=== PATIENT | female | born 1960 | race African-American/Black ===

== ENCOUNTER 2017-04-28 08:18 | Observation (INO) ==
[2017-04-28] MEDS ORDERED: MORPHINE 2 MG/1 ML SYRINGE IV PRN (08:39)
[2017-04-28] MEDS ORDERED: ONDANSETRON 4 MG/2 ML VIAL IV PRN (08:39)
[2017-04-28] MEDS ORDERED: ENOXAPARIN 100 MG/ML SYRINGE SUBCUT STA (08:39)
[2017-04-28] MEDS ORDERED: ASPIRIN 325 MG TABLET PO STA (08:39)
[2017-04-28] MEDS ORDERED: ENOXAPARIN 80 MG/0.8 ML SYRINGE SUBCUT ONE (08:55)
[2017-04-28 08:59] LABS: Basophils % 0.5 % (0.0-0.8); Eosinophils % 0.7 % (0.00-10.9); Hematocrit 39.9 VOL% (35.7-47.0); Hemoglobin 13.9 GM/DL (12.0-16.0); Immature Granulocytes % 0.3 %; Immature Granulocytes Absolute 0.02 #; Lymphocytes # 2.7 10*3/uL (1.4-4.0); Lymphocytes % 44.8 % (21.3-54.2); Mean Corpuscular HGB Conc 34.8 GM/DL (32-36); Mean Corpuscular Hemoglobin 31 PG (27-34); Mean Corpuscular Volume 89.3 FL (87-102); Mean Platelet Volume 9.3 FL (9.6-12.0); Monocytes # 0.3 10*3/uL (0.11-0.8); Monocytes % 5.6 % (1.7-12.7); Neutrophils % 48.1 % (38.7-73.9); Platelet Count 370 T/CUMM (130-400); Red Blood Count 4.47 MC/CUMM (3.8-5.5); Red Cell Distribution Width 17.2 % (9.3-17.3); White Blood Count 6.1 T/CUMM (4-12)
[2017-04-28 09:12] LABS: Apearance,Urine CLEAR (Clear); Bilirubin,Urine Negative (Negative); Blood, Urine Negative (Negative); Glucose,Urine (UA) Negative (Negative); Ketones,Urine Negative (Negative); Nitrite,Urine Negative (Negative); Protein,Urine Negative; Squamous Epithelial Cell,Urine Occasional /HPF (0-10); Urine Specific Gravity 1.001 (1.001-1.035); Urine Urobilinogen < 2.0 EU/DL (0.2-1.0); WBC,Urine <1 /HPF (0-6)
[2017-04-28 09:15] LABS: INR 1.1; PT Patient Result 11.3 SECS; Partial Thromboplastin Time 27.1 SECS (0-40)
[2017-04-28 09:17] LABS: Urine Color Light Yellow (Yellow)
[2017-04-28 09:33] LABS: Alanine Aminotransferase < 9 U/L (13-56); Albumin 3.6 G/DL (3.4-5.0); Alkaline Phosphatase 57 U/L (45-117); Aspartate Amino Transferase 11 U/L (0-37); Blood Urea Nitrogen 9 MG/DL (7-18); Calcium 8.9 MG/DL (8.5-10.1); Glucose 108 MG/DL (74-106); Osmolality,Calculated 276.5 MOS/KG (273-304); Potassium 2.7 MMOL/L (3.5-5.1); Sodium 139 MMOL/L (136-145); Total Protein 7.4 G/DL (6.4-8.3)
[2017-04-28] MEDS ORDERED: POTASSIUM CHLORIDE 20 MEQ TABLET PO STA (09:58)
[2017-04-28] MEDS ORDERED: MAGNESIUM HYDROXIDE SUSP 30 ML UDCUP PO PRN (11:48)
[2017-04-28] MEDS ORDERED: ZALEPLON 5 MG CAPSULE PO PRN (11:48)
[2017-04-28] MEDS ORDERED: ALUM/MAG/SIMETH/LIDO VISC 1:1 30 ML BOTTLE PO PRN (11:48)
[2017-04-28] MEDS ORDERED: POTASSIUM CHLORIDE RIDER 100 ML IV ONE ×2 (11:55→13:30)
[2017-04-28] MEDS: POTASSIUM CHLORIDE RIDER 10 MEQ in PREMIX 1 EACH IV PRN ×2 (12:02→13:35)
[2017-04-28] MEDS ORDERED: BACLOFEN 10 MG TABLET PO PRN (15:54)
[2017-04-28] MEDS ORDERED: ALBUTEROL 1.25 MG/3 ML NEB RESP TX PRN (15:54)
[2017-04-28] MEDS ORDERED: NITROGLYCERIN SL 0.4 MG TABLET SL PRN (15:54)
[2017-04-28] MEDS ORDERED: ALBUTEROL 2.5 MG/3 ML NEB RESP TX PRN (15:54)
[2017-04-28] MEDS ORDERED: traZODone 50 MG TABLET PO PRN (15:54)
[2017-04-28] MEDS: oxyCODONE/ACETAMINOPHEN 5-325 MG TABLET PO PRN (16:37)
[2017-04-28] MEDS ORDERED: FLUVOXAMINE MALEATE 150 MG PO SCH (21:00)
[2017-04-28] MEDS ORDERED: LOXAPINE SUCCINATE 10 MG PO SCH (21:00)
[2017-04-28] MEDS ORDERED: ENOXAPARIN 40 MG/0.4 ML SYRINGE SUBCUT SCH (21:00)
[2017-04-28] MEDS ORDERED: ATORVASTATIN 40 MG TABLET PO SCH (21:00)
[2017-04-28] MEDS: ACYCLOVIR 200 MG CAPSULE PO SCH (21:41)
[2017-04-28] MEDS: FAMOTIDINE 20 MG TABLET PO SCH (21:42)
[2017-04-28] MEDS: GABAPENTIN 100 MG CAPSULE PO SCH (21:42)
[2017-04-29] MEDS: oxyCODONE/ACETAMINOPHEN 5-325 MG TABLET PO PRN ×2 (00:04→08:26)
[2017-04-29] MEDS: ACYCLOVIR 200 MG CAPSULE PO SCH (08:23)
[2017-04-29] MEDS: GABAPENTIN 100 MG CAPSULE PO SCH (08:23)
[2017-04-29] MEDS: FAMOTIDINE 20 MG TABLET PO SCH (08:23)
[2017-04-29] MEDS ORDERED: ASPIRIN EC 81 MG TABLET PO SCH (09:00)
[2017-04-29] MEDS ORDERED: amLODIPine 5 MG TABLET PO SCH (09:00)
[2017-04-29] MEDS ORDERED: FLUVOXAMINE MALEATE 100 MG PO SCH (09:00)
[2017-04-29] MEDS ORDERED: PANTOPRAZOLE 40 MG TABLET PO SCH (09:00)
[2017-04-29] MEDS ORDERED: CLOPIDOGREL 75 MG TABLET PO SCH (09:00)
[2017-04-29] MEDS ORDERED: SPIRONOLACTONE 50 MG TABLET PO SCH (09:00)
[2017-04-29 09:37] LABS: Calcium 8.2 MG/DL (8.5-10.1); Magnesium 1.9 MG/DL (1.8-2.4); Osmolality,Calculated 280.4 MOS/KG (273-304)
[2017-04-29] MEDS ORDERED: POTASSIUM CHLORIDE 10 MEQ TABLET PO SCH (11:00)
[2017-04-29 12:35] VITALS: BP 117/66
[2017-04-29] MEDS ORDERED: POTASSIUM CHLORIDE 8 MEQ CAPSULE PO SCH (15:00)
== END 2017-04-29 13:05 | disposition home or self-care (01) ==
LOC: EDUNIT# → EDBD → N.EDINP 08:18 → N.ED 08:18 → N.TELEN 14:30
PROVIDERS: ADMIT Internal Medicine Cardiovascular Disease; ATTEND Internal Medicine Cardiovascular Disease